=== PATIENT | female | born 1990 | race American Indian/Alaskan Native ===

== ENCOUNTER 2020-05-14 10:24 | Emergency (ER) | payer SELFPAY ==
[2020-05-14 10:55] VITALS: BP 127/87
[2020-05-14] MEDS ORDERED: HYDROcodone/ACETAMINOPHEN 10-325MG TAB PO ONE (11:25)
--- NOTE | 2020-05-14 12:04 | Emergency Department Report ---
ED Lower Extremity HPI - General Chief Complaint: Extremity Injury, Lower Stated Complaint: ANKLE PAIN Time Seen by Provider: 05/14/20 11:17 Source: patient Mode of arrival: Ambulatory Limitations: No Limitations - History of Present Illness Initial Comments: This is a 30-year-old female nontoxic, well nourished in appearance, no acute signs of distress presents to the ED with c/o of right ankle pain 1 week. Patient stated is unsure of trauma or injury. HX of tendinitis. Patient denies any other complaints. Patient denies any numbness, tingling, fever, chills, nausea, vomiting, chest pain, shortness of breath, headache, stiff neck. Patient denies any joint swelling or joint redness. Patient denies decreased range of motion. Patient stated has decreased gait due to pain. Patient denies any allergies or significant past medical history. MD Complaint: ankle injury -: week(s) Injury: Ankle: Right Severity: mild Severity scale (0 -10): 8 Improves With: immobilization Worsens With: weight bearing, palpation Associated Symptoms: able to partially bear weight. denies: snap/pop sensation, swelling, numbness, tingling, unable to bear weight - Related Data Previous Rx's Medication Instructions Recorded Last Taken Type Naproxen 500 mg PO Q12H PRN #12 tablet 05/14/20 Unknown Rx Allergies Allergy/AdvReac Type Severity Reaction Status Date / Time No Known Allergies Allergy Verified 05/14/20 10:55 ED Review of Systems ROS: Stated complaint: ANKLE PAIN Other details as noted in HPI Constitutional: denies: chills, fever Eyes: denies: eye pain, eye discharge, vision change ENT: denies: ear pain, throat pain Respiratory: denies: cough, shortness of breath, wheezing Cardiovascular: denies: chest pain, palpitations Endocrine: no symptoms reported Gastrointestinal: denies: abdominal pain, nausea, diarrhea Genitourinary: denies: urgency, dysuria, discharge Musculoskeletal: denies: back pain, joint swelling, arthralgia Skin: denies: rash, lesions Neurological: denies: headache, weakness, paresthesias Psychiatric: denies: anxiety, depression Hematological/Lymphatic: denies: easy bleeding, easy bruising ED Past Medical Hx - Past Medical History Previous Medical History?: Yes Additional medical history: Hemoglobin C - Surgical History Past Surgical History?: No - Social History Smoking Status: Current Every Day Smoker Substance Use Type: Alcohol - Medications Home Medications: Home Medications Medication Instructions Recorded Confirmed Last Taken Type Naproxen 500 mg PO Q12H PRN #12 tablet 05/14/20 Unknown Rx ED Physical Exam - General Limitations: No Limitations General appearance: alert, in no apparent distress - Head Head exam: Present: atraumatic, normocephalic - Neck Neck exam: Present: normal inspection, full ROM - Respiratory Respiratory exam: Absent: respiratory distress - Cardiovascular Cardiovascular Exam: Present: regular rate - Extremities Exam Extremities exam: Present: full ROM, tenderness, normal capillary refill. Absent: joint swelling, calf tenderness - Expanded Lower Extremity Exam Right Hip exam: Present: normal inspection, full ROM. Absent: tenderness, swelling Upper Leg exam: Present: normal inspection, full ROM. Absent: tenderness, swelling Knee exam: Present: normal inspection, full ROM. Absent: tenderness, swelling Lower Leg exam: Present: normal inspection, full ROM. Absent: tenderness, swelling Ankle exam: Present: full ROM, tenderness. Absent: swelling, abrasion, laceration, ecchymosis, deformity, crepidus, dislocation, erythema, anterior draw sign Foot/Toe exam: Present: normal inspection, full ROM. Absent: tenderness, swelling Neuro vascular tendon exam: Present: no vascular compromise Gait: Positive: observed and limited by pain - Back Exam Back exam: Present: full ROM - Neurological Exam Neurological exam: Present: alert, oriented X3 - Psychiatric Psychiatric exam: Present: normal affect, normal mood - Skin Skin exam: Present: warm, dry, intact, normal color. Absent: rash ED Course Vital Signs 05/14/20 05/14/20 10:42 11:29 Temperature 98.4 F Pulse Rate 69 Respiratory 16 18 Rate Blood Pressure 127/87 O2 Sat by Pulse 100 Oximetry - Reevaluation(s) Reevaluation #1: 05/14/20 12:05 Patient is speaking in full sentences with no signs of distress noted. ED Lower Extremity MDM - Medical Decision Making This is a 30-year-old female that presents with right ankle strain. Patient is stable and was examined by me. I referred patient to an orthopedic doctor for further evaluation for possible MRI. X-ray has been obtained and dictated by the radiologist. Patient is notified of the x-ray report with noted by the pat ient. Patient does have normal gait with no tenderness and no joint swelling. No ecchymosis. no joint redness or swelling. Not warm to touch. No signs of cellulites present. Patient has a lorene wrap on now. Patient was instructed to RICE therapy. Patient received [place] for pain which stated sypmtoms improved and subsiding. Stated family member will drive the pt home after discharge due to possible drowsiness. Patient is discharged with Naproxen. At time of discharge, the patient does not seem toxic or ill in appearance. No acute signs of distress noted. Patient agrees to discharge treatment plan of care. No further questions noted by the patient. Critical care attestation.: If time is entered above; I have spent that time in minutes in the direct care of this critically ill patient, excluding procedure time. ED Disposition Clinical Impression: Right ankle strain Qualifiers: Encounter type: initial encounter Qualified Code(s): S96.911A - Strain of unspecified muscle and tendon at ankle and foot level, right foot, initial encounter Disposition: TO HOME OR SELFCARE Is pt being admited?: No Does the pt Need Aspirin: No Condition: Stable Instructions: RICE Therapy (ED) Additional Instructions: Follow-up with a orthopedic doctor in 3-5 days or if symptoms worsen and continue return to emergency room as soon as possible. No physical activity that extremity until cleared by orthopedic doctor Prescriptions: Naproxen 500 mg PO Q12H PRN #12 tablet PRN Reason: Pain , Severe (7-10) Referrals: PRIMARY CAREMD [Referring] - 3-5 Days OLEG BELLA MD [Staff Physician] - 3-5 Days Forms: Work/School Release Form(ED)
--- NOTE | 2020-05-14 12:07 | XRay Report ---
RIGHT ANKLE 3 VIEWS INDICATION / CLINICAL INFORMATION: right ankle pain COMPARISON: None available. FINDINGS: BONES / JOINT(S): No acute fracture or subluxation. No significant arthritis. SOFT TISSUES: No significant abnormality. ADDITIONAL FINDINGS: None. Signer Name: Pierce Fan MD Signed: 05/14/2020 12:03 PM Workstation Name: [id number]
== END 2020-05-14 12:37 | disposition home or self-care (01) ==
LOC: ED 10:24
DX: S96.911A Strain of unspecified muscle and tendon at ankle and foot level, right foot, initial encounter (principal); F17.200 Nicotine dependence, unspecified, uncomplicated; Z79.899 Other long term (current) drug therapy; X58.XXXA Exposure to other specified factors, initial encounter; Y93.89 Activity, other specified; Y92.89 Other specified places as the place of occurrence of the external cause; Y99.8 Other external cause status
CPT/HCPCS: 99283

== ENCOUNTER 2021-01-08 10:21 | Emergency (ER) | payer MEDICAID ==
[2021-01-08 11:29] VITALS: BP 132/84
--- NOTE | 2021-01-08 12:38 | Emergency Department Report ---
ED General Adult HPI - General Chief complaint: Eye Problems Stated complaint: BILATERAL PINK EYE Time Seen by Provider: 01/08/21 11:41 Source: patient Mode of arrival: Ambulatory Limitations: No Limitations - History of Present Illness Initial comments: 30-year-old -[place] female patient presents with complaints of bilateral eye irritation and achiness x2 days. Patient reports her symptoms started after using a new lash glue. She states she woke up this morning with her left eye crusted shut. Rates her pain as a 4/10 in severity and states it is mild. No vision changes or headache per patient. She states OTC eyedrops are not helping. No prior medical history per patient. - Related Data Previous Rx's Medication Instructions Recorded Last Taken Type Naproxen 500 mg PO Q12H PRN #12 tablet 05/14/20 Unknown Rx Polymyxin B Sulf/Trimethoprim 1 drop OP Q3HR 7 Days #1 drops 01/08/21 Unknown Rx [Polytrim Eye Drops 54051cvhja/0.1%] predniSONE 10 mg PO TID 3 Days #9 tab 01/08/21 Unknown Rx Allergies Allergy/AdvReac Type Severity Reaction Status Date / Time No Known Allergies Allergy Verified 05/14/20 10:55 ED Review of Systems ROS: Stated complaint: BILATERAL PINK EYE Other details as noted in HPI Constitutional: denies: chills, diaphoresis, fever, malaise, weakness Eyes: eye pain, eye discharge. denies: vision change ENT: denies: throat pain Respiratory: denies: cough Skin: denies: rash Neurological: denies: headache ED Past Medical Hx - Past Medical History Previous Medical History?: No Additional medical history: Hemoglobin C - Social History Smoking Status: Current Every Day Smoker Substance Use Type: Alcohol - Medications Home Medications: Home Medications Medication Instructions Recorded Confirmed Last Taken Type Naproxen 500 mg PO Q12H PRN #12 tablet 05/14/20 Unknown Rx Polymyxin B Sulf/Trimethoprim 1 drop OP Q3HR 7 Days #1 drops 01/08/21 Unknown Rx [Polytrim Eye Drops 04450jmfch/0.1%] predniSONE 10 mg PO TID 3 Days #9 tab 01/08/21 Unknown Rx ED Physical Exam - General Limitations: No Limitations General appearance: alert, in no apparent distress - Head Head exam: Present: atraumatic, normocephalic - Eye Eye exam: Present: PERRL, EOMI, conjunctival injection (Bilateral). Absent: periorbital swelling - Neck Neck exam: Present: full ROM - Respiratory Respiratory exam: Absent: respiratory distress - Cardiovascular Cardiovascular Exam: Present: regular rate - Neurological Exam Neurological exam: Present: alert, oriented X3 - Psychiatric Psychiatric exam: Present: normal affect, normal mood - Skin Skin exam: Present: warm, dry, intact, normal color. Absent: rash ED Course Vital Signs 01/08/21 11:27 Temperature 98 F Pulse Rate 72 Respiratory 16 Rate Blood Pressure 132/84 [Right] O2 Sat by Pulse 97 Oximetry ED Medical Decision Making - Radiology Data Radiology results: report reviewed - Medical Decision Making 30-year-old -[place] female patient presents with complaints of bilateral eye irritation and achiness x2 days. Patient reports her symptoms started after using a new lash glue. She states she woke up this morning with her left eye crusted shut. Rates her pain as a 4/10 in severity and states it is mild. No vision changes or headache per patient. She states OTC eyedrops are not helping. No prior medical history per patient. Bilateral eye irritation noted on exam with mild purulent drainage in the left eye. We will treat for both allergic and bacterial conjunctivitis. She is to follow-up with her primary care in 3 to 5 days. Discussed signs and symptoms that should prompt immediate return to the emergency department in detail with patient who verbalized understanding. She is well-appearing, her vitals are within normal limits, she is stable for discharge home. Critical care attestation.: If time is entered above; I have spent that time in minutes in the direct care of this critically ill patient, excluding procedure time. ED Disposition Clinical Impression: Irritation of both eyes Disposition: DC-01 TO HOME OR SELFCARE Is pt being admited?: No Condition: Stable Instructions: Allergic Conjunctivitis, Adult, [id number], Bacterial Conjunctivitis, Adult, [id number] Additional Instructions: Recommend Zatidor eye drops and loratadine Prescriptions: Polymyxin B Sulf/Trimethoprim [Polytrim Eye Drops 18756cinrd/0.1%] 1 drop OP Q3HR 7 Days #1 drops predniSONE 10 mg PO TID 3 Days #9 tab Referrals: [facility] [Provider Group] - 3-5 Days Forms: Work/School Release Form(ED)
== END 2021-01-08 12:58 | disposition home or self-care (01) ==
LOC: ED 10:21
DX: H57.89 Other specified disorders of eye and adnexa (principal); F17.200 Nicotine dependence, unspecified, uncomplicated; Z79.899 Other long term (current) drug therapy
CPT/HCPCS: 99281

== ENCOUNTER 2021-05-19 03:31 | Emergency (ER) | payer MEDICAID ==
[2021-05-19 03:52] VITALS: BP 120/86
[2021-05-19] MEDS ORDERED: ONDANSETRON 4 MG ODT TAB PO ONE (04:58)
[2021-05-19] MEDS ORDERED: IBUPROFEN 600 MG TAB PO ONE (04:58)
[2021-05-19] MEDS ORDERED: HYDROcodone/ACETAMINOPHEN 5-325 MG TAB PO ONE (04:58)
[2021-05-19] MEDS ORDERED: predniSONE 20 MG TAB PO ONE (04:58)
--- NOTE | 2021-05-19 05:34 | Emergency Department Report ---
ED Extremity Problem HPI - General Chief complaint: Extremity Injury, Lower Stated complaint: LT ANKLE PAIN Source: patient Mode of arrival: Wheelchair Limitations: No Limitations - History of Present Illness Initial comments: Patient is a 31-year-old -[place] female with a history of chronic left Achilles tendinitis who presents to the ED with complaint of acute exacerbation of her chronic left Achilles tendon pain with right ankle pain for the last 3 days, worse in the last 24 hours. Patient states that the pain is especially worse with any active range of motion of the left ankle and foot. Patient denies fall, traumatic injury, chest pain or shortness of breath, fever, chills, nausea and vomiting or swelling, numbness and tingling or weakness of left leg. MD Complaint: extremity pain (Posterior Achilles tendon and left left ankle pain), joint paint (Posterior left ankle pain) -: Sudden, days(s) (3) Location: left, lower extremity (Procedure left Achilles tendon and ankle joint pain) History of Same: Yes (Chronic) -: No myalgia, Yes arthralgia (Chronic Achilles tendinitis), No fever, No associated dyspnea, No associated chest pain Radiation: distal Severity scale (0 -10): 8 Quality: aching, sharp Consistency: constant Improves with: nothing Worsens with: weight bearing, walking, exertion, palpation Associated Symptoms: denies other symptoms, arthralgias (Posterior left ankle pain). denies: chest pain, shortness of breath, myalgias - Related Data Previous Rx's Medication Instructions Recorded Last Taken Type Polymyxin B Sulf/Trimethoprim 1 drop OP Q3HR 7 Days #1 drops 01/08/21 Unknown Rx [Polytrim Eye Drops 95132dptcl/0.1%] predniSONE 10 mg PO TID 3 Days #9 tab 01/08/21 Unknown Rx Baclofen 20 mg PO Q12H PRN #20 tablet 05/19/21 Unknown Rx Naproxen 500 mg PO Q12H PRN #30 tablet 05/19/21 Unknown Rx predniSONE [Deltasone] 40 mg PO QDAY #10 tab 05/19/21 Unknown Rx Allergies Allergy/AdvReac Type Severity Reaction Status Date / Time amoxicillin Allergy Hives Verified 05/19/21 03:51 azithromycin Allergy Hives Verified 05/19/21 03:51 Penicillins Allergy Hives Verified 05/19/21 03:51 shellfish derived Allergy Hives Verified 05/19/21 03:51 silver Allergy Hives Verified 05/19/21 03:51 [From [facility] Mesh] ED Review of Systems ROS: Stated complaint: LT ANKLE PAIN Other details as noted in HPI Constitutional: denies: chills, fever Eyes: denies: eye pain, eye discharge, vision change ENT: denies: ear pain, throat pain Respiratory: denies: cough, shortness of breath, wheezing Cardiovascular: denies: chest pain, palpitations Endocrine: no symptoms reported Gastrointestinal: denies: abdominal pain, nausea, diarrhea Genitourinary: denies: urgency, dysuria, discharge Musculoskeletal: arthralgia (Posterior left ankle and Achilles tendon pain). denies: back pain, joint swelling Skin: denies: rash, lesions Neurological: denies: headache, weakness, paresthesias Psychiatric: denies: anxiety, depression Hematological/Lymphatic: denies: easy bleeding, easy bruising ED Past Medical Hx - Past Medical History Additional medical history: Hemoglobin C - Social History Smoking Status: Current Every Day Smoker Substance Use Type: Alcohol - Medications Home Medications: Home Medications Medication Instructions Recorded Confirmed Last Taken Type Polymyxin B Sulf/Trimethoprim 1 drop OP Q3HR 7 Days #1 drops 01/08/21 Unknown Rx [Polytrim Eye Drops 35376adjvz/0.1%] predniSONE 10 mg PO TID 3 Days #9 tab 01/08/21 Unknown Rx Baclofen 20 mg PO Q12H PRN #20 tablet 05/19/21 Unknown Rx Naproxen 500 mg PO Q12H PRN #30 tablet 05/19/21 Unknown Rx predniSONE [Deltasone] 40 mg PO QDAY #10 tab 05/19/21 Unknown Rx ED Physical Exam - General Limitations: No Limitations General appearance: alert, in no apparent distress - Head Head exam: Present: atraumatic, normocephalic, normal inspection - Eye Eye exam: Present: normal appearance, PERRL, EOMI Pupils: Present: normal accommodation - ENT ENT exam: Present: normal exam, normal orophraynx, mucous membranes moist, TM's normal bilaterally, normal external ear exam - Neck Neck exam: Present: normal inspection, full ROM. Absent: tenderness - Respiratory Respiratory exam: Present: normal lung sounds bilaterally. Absent: respiratory distress, wheezes, rales, rhonchi, chest wall tenderness, accessory muscle use, decreased breath sounds - Cardiovascular Cardiovascular Exam: Present: regular rate, normal rhythm, normal heart sounds. Absent: systolic murmur, diastolic murmur, rubs, gallop - GI/Abdominal GI/Abdominal exam: Present: soft, normal bowel sounds. Absent: tenderness, guarding, rebound, hyperactive bowel sounds, hypoactive bowel sounds, organomegaly, bruit - Extremities Exam Extremities exam: Present: normal inspection, full ROM, tenderness (Palpable l eft ankle joint and posterior Achilles tenderness), normal capillary refill. Absent: pedal edema, joint swelling, calf tenderness - Back Exam Back exam: Present: normal inspection, full ROM. Absent: tenderness, CVA tenderness (R), CVA tenderness (L), muscle spasm, paraspinal tenderness, vertebral tenderness - Neurological Exam Neurological exam: Present: alert, oriented X3, CN II-XII intact, normal gait, reflexes normal - Psychiatric Psychiatric exam: Present: normal affect, normal mood - Skin Skin exam: Present: warm, dry, intact, normal color. Absent: rash ED Course Vital Signs 05/19/21 03:51 Temperature 98.4 F Pulse Rate 76 Respiratory 20 Rate Blood Pressure 120/86 O2 Sat by Pulse 96 Oximetry ED Medical Decision Making - Medical Decision Making This is a 31-year-old -[place] female with a history of chronic left Achilles tendinitis who presents to the ED with complaint of acute exacerbation of her chronic left Achilles tendon pain with right ankle pain for the last 3 days, worse in the last 24 hours. Patient states that the pain is especially worse with any active range of motion of the left ankle and foot. In the ED, patient is alert and oriented x3 and is not in any distress. Patient was treated for pain in the ED. The left ankle was splinted with [place] wrap and the patient will discharge home on pain medications and advised to follow-up with her primary care physician in 7 to 10 days for reevaluation. Patient is advised return to the ED immediately if symptoms get worse. - Differential Diagnosis Chronic tendinitis; ankle sprain; ankle muscle strain Critical care attestation.: If time is entered above; I have spent that time in minutes in the direct care of this critically ill patient, excluding procedure time. ED Disposition Clinical Impression: Achilles tendinitis of left lower extremity Muscle strain of left ankle Qualifiers: Encounter type: initial encounter Qualified Code(s): S96.912A - Strain of unspecified muscle and tendon at ankle and foot level, left foot, initial encounter Severe sprain of left ankle Qualifiers: Encounter type: initial encounter Qualified Code(s): S93.402A - Sprain of unspecified ligament of left ankle, initial encounter Disposition: HOME / SELF CARE / HOMELESS Is pt being admited?: No Does the pt Need Aspirin: No Condition: Stable Instructions: Ankle Sprain, [id number], Muscle Strain, [id number], Achilles Tendinitis Rehab-SportsMed, Tendinitis, [id number] Additional Instructions: Take medication with food, drink plenty of fluids and follow-up with your primary care physician in 7 to 10 days for reevaluation. Return to the ED immediately if symptoms get worse. Prescriptions: Baclofen 20 mg PO Q12H PRN #20 tablet PRN Reason: Muscle Spasm predniSONE [Deltasone] 40 mg PO QDAY #10 tab Naproxen 500 mg PO Q12H PRN #30 tablet PRN Reason: Pain , Severe (7-10) Referrals: FARIDA WARREN MD [Primary Care Provider] - 3-5 Days Time of Disposition: 05:33 Print Language: KAZAK[place]
== END 2021-05-19 06:20 | disposition home or self-care (01) ==
LOC: ED 03:31
DX: S93.402A Sprain of unspecified ligament of left ankle, initial encounter (principal); M76.62 Achilles tendinitis, left leg; S96.912A Strain of unspecified muscle and tendon at ankle and foot level, left foot, initial encounter; Z88.1 Allergy status to other antibiotic agents; Z88.0 Allergy status to penicillin; X58.XXXA Exposure to other specified factors, initial encounter; Z91.013 Allergy to seafood; Z91.048 Other nonmedicinal substance allergy status; F17.200 Nicotine dependence, unspecified, uncomplicated; Y93.89 Activity, other specified; Y92.89 Other specified places as the place of occurrence of the external cause; Y99.8 Other external cause status
CPT/HCPCS: 99283; J7512; Q0162